=== PATIENT | female | born 1990 | race Caucasian/White ===

== ENCOUNTER → 2022-12-11 | Outpatient (CLI) | payer OTHER, SELFPAY ==
[2022-12-11 16:11] LABS: Absolute Lymphocyte Count 2.68 X10^3/uL (0.83-4.51); Absolute Neutrophil Count 7.5 X10^3/uL (2.0-7.7); Basophil# 0.06 X10^3/uL; Basophil% 0.5 % (0-1); Eosinophil# 0.19 X10^3/uL; Eosinophils% 1.7 % (0-5); Hematocrit 37.2 % (37-47); Hemoglobin 11.1 g/dL (12.0-15.0); Lymphocyte # 2.68 X10^3/ul (0.83-4.51); Lymphocyte % 24.1 % (19-41); Mean Corp Hgb Conc 29.8 g/dL (32-36); Mean Corpuscular Hgb 24.1 pg (27.0-32.0); Mean Corpuscular Volume 80.9 fL (81-99); Mean Platelet Vol. 10.8 fl (6.2-12.0); Monocyte# 0.65 X10^3/uL; Monocyte% 5.9 % (0-10); NRBC Flagged by Analyzer 0 % (0-5); Neutrophil % 67.5 % (47-70); Platelet Count 478 K/mm3 (150-450); RBC Distribution Width CV 14.8 % (11.6-14.6); RBC Distribution Width SD 43.7 fl (35.1-43.9); White Blood Count 11.1 K/mm3 (4.4-11.0)
[2022-12-11 17:07] LABS: ALB/GLOB Ratio 0.9 RATIO (0.9-2.4); AST(SGOT) 11 U/L (15-37); Alanine Aminotransfer ALT/SGPT 22 U/L (13-56); Albumin, Serum 3.7 g/dL (3.2-5.0); Alkaline Phosphatase 92 U/L (45-117); Anion Gap 5 (5-15); BUN 13 mg/dL (7-18); BUN/Creat Ratio 15.4 RATIO (10-20); Calcium,Total 9.2 mg/dL (8.5-10.1); Chloride 108 mmol/L (98-107); Creatinine, Serum 0.84 mg/dL (0.55-1.02); EST Glomerular Filtration Rate 82 mL/min (>60); Est Glom Filt Rate - Afr Amer 100 mL/min (>60); Globulin 4.3 g/dL (2.2-4.2); Glucose 82 mg/dL (74-106); Potassium 3.8 mmol/L (3.5-5.1); Sodium Level 139 mmol/L (136-145)
== END | disposition home or self-care (01) ==
LOC: BIMLAB 13:36
PROVIDERS: Internal Medicine; Visit Provider Internal Medicine
DX: F51.04 Psychophysiologic insomnia (principal)
CPT/HCPCS: 36415; 80053; 85025

== ENCOUNTER → 2023-02-27 | Outpatient (CLI) | payer OTHER, SELFPAY ==
--- NOTE | 2023-02-27 10:44 | RAD_ITS ---
STUDY: X-RAY - CERVICAL SPINE REASON FOR EXAM: Female, 32 years old. Neck pain, radiculopathy TECHNIQUE: 5 view(s) of the cervical spine were obtained including oblique views. COMPARISON: None FINDINGS: Normal anterior atlantoaxial articulation. Normal odontoid process. Normal cervical lordosis. Normal vertebral bodies and endplates. Normal disc space heights. Normal visualized intervertebral neuroforamina. The soft tissue structures are unremarkable. RAD/Cerv Spine 4 or 5 Views IMPRESSION: Normal x-ray examination of the visualized cervical spine. Electronically Signed: Kali Morin MD at 14:56 EST ,
--- OUTSIDE RECORDS SUMMARY | 2023-02-27 11:19 | XMS RPT_ITS | CCD ---
Author Name Unknown Address [address] [place] [address] Organization [facility] Care Team Providers Care Home Energy Inspector Name Role Phone Cordell Booth DO Unavailable Ethandeisi Reji Unavailable Allergies Allergy Classification Reported Allergen(s) Allergy Type Date of Onset Reaction(s) Facility (1 source) Free Text Propensity to adverse reactions (disorder) [facility] Medications Current Medications Medication Drug Class(es) Dates Sig (Normalized) Sig (Original) hydrocortisone acetate 25 mg/ml / pramoxine hydrochloride 10 mg/ml rectal cream (1 source) Corticosteroid Start: 09-04-2022 Hydrocortisone-pra moxine 2.5%-1% rectal cream Completed/Discontinued Medications Medication Drug Class(es) Dates Sig (Normalized) Sig (Original) NEGATED: Highlighted row has not occurred! (1 source) Start: 09-08-2022 End: 09-08-2022 Problems Problem Classification Problem Date Documented Da te Episodic/Chronic Hemorrhoids (2 sources) Unspecified hemorrhoids; Translations: [Unspecified hemorrhoids] Onset: 09-04-2022 Episodic Vital Signs Date Time Vital Sign Value Performing Clinician Faci lity 09-04-2022 11:08-0400 Body temperature 98.06 [degF] Cordell Booth DO [facility] 09-04-2022 11:08-0400 Body weight 83.9 kg Cordell Booth DO [facility] 09-04-2022 11:08-0400 Diastolic blood pressure 86 mm[Hg] Cordell Booth DO [facility] 09-04-2022 11:08-0400 Heart rate 77 /min Cordell Booth DO [facility] 09-04-2022 11:08-0400 Respiratory rate 16 /min Cordell Booth DO [facility] 09-04-2022 11:08-0400 SaO2% (BldA) [Mass fraction] 99 % Cordell Booth DO [facility] 09-04-2022 11:08-0400 Systolic blood pressure 120 mm[Hg] Cordell Booth DO [facility] Encounters Encounter Date Encounter Type Care Provider Facility Start: 09-04-2022 Cordell Valverde O [facility] Instructions Note Date & Type Note Facility [facility] Additional Source Comments Reason for Visit (unrecogniz ed section and content) Rectal pain for the past 3 weeks. Increased pain with bowel movement. No blood. FOR RECORDS PERTAINING TO PATIENTS WHO ARE OR HAVE BEEN ENROLLED IN A CHEMICAL DEPENDENCY/SUBSTANCEABUSE PROGRAM, SOME INFORMATION MAY BE OMITTED. This clinical summary was aggregated from multiple sources. Caution should be exercised in using it in the provision of clinical care. This summary normalizes information from multiple sources, and as a consequence, information in this document may materially change the coding, format and clinical context of patient data. In addition, data may be omitted in some cases. CLINICAL DECISIONS SHOULD BE BASED ON THE PRIMARY CLINICAL RECORDS. [employer] [facility]. provides no warranty or guarantee of the accuracy or completeness of information in this document.
== END | disposition home or self-care (01) ==
PROVIDERS: PCP Internal Medicine; Referring Provider Internal Medicine; Visit Provider Internal Medicine
DX: M54.2 Cervicalgia (principal)
CPT/HCPCS: 72050

== ENCOUNTER → 2023-04-10 | Outpatient (CLI) | payer OTHER, SELFPAY ==
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
== END | disposition home or self-care (01) ==
PROVIDERS: PCP Internal Medicine; Visit Provider Internal Medicine
DX: R35.0 Frequency of micturition (principal)
CPT/HCPCS: 87086

== ENCOUNTER → 2023-06-28 | Outpatient (CLI) | payer OTHER, SELFPAY ==
[2023-06-28 14:03] LABS: Bacteria 0 SEEN /hpf (None Seen); Mucous, Urine 0 SEEN /hpf (<or=2+)
[2023-06-28 16:11] LABS: Color, Urine Yellow (Yellow); Glucose, Dipstick Normal (Normal); Ketone-Dipstick Negative (Negative); Leukocyte Esterase-Dipstick Negative /ul (Negative); Nitrite-Dipstick Negative (Negative); Occult Blood-Urine Negative /ul (Negative); Protein-Dipstick Negative (Negative); Specific Gravity, Urine 1.025 (1.002-1.030); Urine Bilirubin Dipstick Negative (Negative); Urine Clarity Clear (Clear); Urine Urobilinogen Normal (Normal)
[2023-06-28 16:49] LABS: Red Blood Cells-Urine 0-5 SEEN /hpf (0-5); Squamous Epithelial Cells - UA 0-5 SEEN /hpf (5-10); White Blood Cells 0-5 SEEN /hpf (0-5)
[2023-07-03 22:03] LABS: HPV Reflexed? NOT INDICATED
== END | disposition home or self-care (01) ==
LOC: LABSPEC 11:13
PROVIDERS: PCP Internal Medicine; Visit Provider Internal Medicine
DX: Z12.4 Encounter for screening for malignant neoplasm of cervix (principal); R35.0 Frequency of micturition; N89.8 Other specified noninflammatory disorders of vagina
CPT/HCPCS: 81001; 87070; 87086; 87088; 87205; 88175; G0145

== ENCOUNTER 2023-07-18 19:34 | Emergency (ER) | payer OTHER, SELFPAY ==
[2023-07-18 19:35] VITALS: BP 126/82; PULSE 91; RESP 16; TEMP 36.8; O2SAT 95; BMI 32.6
--- NOTE | 2023-07-18 20:47 | EDS_ITS ---
HPI HPI - GI History of Present Illness Chief Complaint: Abd Pain Narrative Narrative: 33-year-old female past medical history of 2 prior C-sections presents with 4 days of left lower quadrant abdominal pain/left flank pain. She states her symptoms began on Sunday, she starts having sharp stabbing pain underneath her left rib cage, radiating downward. And moved to the left lower quadrant. She went to sleep and woke up Sunday morning and it was still present. She saw her primary care provider's office where they did a urinalysis with the thought that it may be ureterolithiasis, but there was no evidence of blood. She does not describe any colicky pain that she can get comfortable but continuous pain mainly in the left lower quadrant. She denies any overt fever, but she felt warm, then was chilled today even though it was 80 degrees out. She denies any gross hematuria, and additionally no problems with bowel movements with her last normal bowel movement being today. Her last menstrual period was approximately a week and a half ago. She presents because of the continued left lower quadrant pain. She may feel partially improved when she lies flat on her back. PFSH PFSH Medical History UTI (urinary tract infection) Left eye pain Herpes zoster Flu vaccine need GERD (gastroesophageal reflux disease) Chronic headaches History of back problems Anemia Home Medications ?Medication ?Instructions ?Recorded ?Last Taken ?Type trazodone 100 mg tablet 100 mg PO QHS #30 tabs 12/05/22 Unknown Rx omeprazole 20 mg capsule,delayed 20 mg PO DAILY #90 caps 04/10/23 Unknown Rx release Allergy/AdvReac Type Severity Reaction Status Date / Time amoxicillin Allergy Severe Other Verified 07/18/23 19:37 nitrofurantoin (From Allergy Severe Itching Verified 07/18/23 19:37 Macrobid) ceftriaxone (From Rocephin) Allergy Intermediate Other Verified 07/18/23 19:37 Family History Mother Anemia Father Diabetes Hypertension High cholesterol Aunt Breast cancer Sister Epilepsy Uncle Cancer Skin CA Surgical History Previous section Social History household members: spouse and children number of children: 2 current occupational status: employed 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 HEENT: No sore throat. No neck pain. No loss of vision. No rhinorrhea. Cardiovascular: No chest pain. No palpitations. No pedal edema. Respiratory: No cough, no shortness of breath. Abdominal: Left lower quadrant abdominal pain. No nausea. No vomiting. No diarrhea. No constipation/obstipation. Genitourinary: No dysuria. No hematuria. Musculoskeletal: No myalgias. No arthralgias. Neurologic: No headaches. No dizziness. No lightheadedness. Skin: No rash. No change in color. Psychiatric: No depression. No anxiety. EXAM Physical Exam Narrative Exam Narrative: Afebrile. Vital signs noted. HEENT: Normocephalic. Atraumatic. PERRL, EOMI. Neck soft and supple. No point tenderness or step off. Cardiovascular: Regular rate and rhythm. No murmurs, rubs, or gallops appreciated. Respiratory: No tachypnea. Lungs clear to auscultation bilaterally. Gastrointestinal: Abdomen soft, nontender, with normoactive bowel sounds. No rebound or guarding. No CVA tenderness to percussion, left. Mild tenderness to palpation left lower quadrant of abdomen. Neurological: Awake. Alert. Nonfocal, nonlateralizing. Skin: No rash. Normal color. No pallor. Musculoskeletal: No pedal edema. Full range of motion extremities. Const Vital Signs: 07/18/23 19:35 07/18/23 21:34 Temperature 98.3 F Temperature Source Temporal Pulse Rate 91 74 Respiratory Rate 16 18 Blood Pressure 126/82 H 123/76 H Blood Pressure Mean 96 91 Pulse Ox 95 Oxygen Delivery Method Room Air MDM MDM MDM Narrative Medical decision making narrative: In the differential diagnosis does remain ureterolithiasis versus diverticulitis versus colitis. She not really showing any signs of diverticulitis with a normal bowel movement today. She is already had workup that did not show blood in her urine. However as 30% of kidney stones do not have blood on the urinalysis, comprehensive workup will be pursued. I do feel that she merits emergent CT imaging given the tenderness in the left lower quadrant of her abdomen. Although she will be given IV contrast, I do not think it would obscure stone, and hydronephrosis would still be seen. She was given morphine and ondansetron along with an IV fluid bolus. I reviewed her laboratory work and she has slightly elevated leukocytosis of 13.0, but has been elevated in the past. I think is nonspecific, hemoglobin stable at 11.8, hematocrit 38.2, platelet count normal at 446. Electrolyte panel is grossly unremarkable with a sodium of 138 and a potassium of 3.8, BUN of 11 and creatinine 0.86. AST and ALT are normal. Urinalysis is negative for infection with 0 WBCs and 0 RBCs, no hematuria. I doubt ureterolithiasis or pyelonephritis then. Serum test is negative. Repeat examination after morphine and ondansetron shows her to ambulate to the bathroom and states that she feels improved. I reviewed the radiology report of the CT of the abdomen and pelvis and while there is diverticulosis there is no evidence of diverticulitis or bowel obstruction. No evidence of obstructive uropathy. At this point in time, I am unsure as to the cause of her left flank pain, but I feel that she can be discharged to take [id number] medications and follow- up with her primary care provider. Return instructions to the emergency department were reviewed. Patient agreeable to the plan. Disposition is discharged home in stable condition. History & Record Review Discussion w/independent historian: Patient Additional record(s) reviewed:: Prior labs Lab Data Attestation: I reviewed the patient's lab results. Labs: Laboratory Results - last 24 hr 07/18/23 07/18/23 19:50 20:33 WBC 13.0 H RBC 4.82 Hgb 11.8 L Hct 38.2 MCV 79.3 L MCH 24.5 L MCHC 30.9 L RDW Std Deviation 42.9 RDW Coeff of Giuseppe 14.9 H Plt Count 446 MPV 11.0 Immature Gran % (Auto) 0.300 Neut % (Auto) 67.2 Lymph % (Auto) 24.1 Rabun % (Auto) 5.7 Eos % (Auto) 1.9 Baso % (Auto) 0.8 Absolute Neuts (auto) 8.8 H Absolute Lymphs (auto) 3.13 Nucleated RBC % 0 Sodium 138 Potassium 3.8 Chloride 107 Carbon Dioxide 24.0 Anion Gap 7 BUN 11 Creatinine 0.86 Estim Creat Clear Calc 105.14 Est GFR (MDRD) Af Amer 96 Est GFR (MDRD) Non-Af 80 BUN/Creatinine Ratio 12.7 Glucose 98 Calcium 9.7 Total Bilirubin 0.20 AST 17 ALT 32 Alkaline Phosphatase 103 Total Protein 7.9 Albumin 3.9 Globulin 4.0 Albumin/Globulin Ratio 1.0 Serum , Qual NEGATIVE Urine Color Straw Urine Clarity Clear Urine pH 7.0 Ur Specific [place] 1.005 Urine Protein Negative Urine Glucose (UA) Normal Urine Ketones Negative Urine Occult Blood Negative Urine Nitrite Negative Urine Bilirubin Negative Urine Urobilinogen Normal Ur Leukocyte Esterase Negative Urine RBC 0 SEEN Urine WBC 0 SEEN Ur Squamous Epith Cells 0-5 SEEN Urine Bacteria 0 SEEN Urine Mucus 0 SEEN Radiography Diagnostic Testing: Clinical Impression(s) from Imaging Studies Abdomen/Pelvis CT 07/18/23 21:35 IMPRESSION: 1. No masses bowel obstruction abscess free fluid or free air. 2. Scattered diverticula without evidence diverticulitis. 3. The appendix is not identified. 4. No evidence renal calcification or obstructive uropathy. 5. No evidence cholelithiasis. 6. Trace nonspecific fluid is present within the pelvis/cul-de-sac. No evidence of pelvic masses or abnormal Electronically Signed: Roddy [place] MD at 22:27 EDT , Discharge Plan Triage Chief Complaint: Abd Pain Other Complaint: Flank Pain ED Provider: Ariel Bui Dx/Rx/DC Orders Clinical Impression: Left flank pain Instructions: ED Flank Pain, Uncertain Cause Prescriptions: No Action trazodone 100 mg tablet 100 mg PO QHS Qty: 30 1RF omeprazole 20 mg capsule,delayed release(DR/EC) 20 mg PO DAILY Qty: 90 0RF Primary Care Provider: Roma Rao Referrals: Roma Rao MD [Primary Care Provider] - 3-5 Days if not improving Activity Restrictions/Additional Instructions: Negative CT scan today. Take [id number] medications such as Tylenol or ibuprofen as needed for pain. Follow-up with your primary care provider. Return with increased pain, fever, new or worsening symptoms. Print Language: Irish Disposition Disposition: Home, Self Care
[2023-07-18 20:56] LABS: Bacteria 0 SEEN /hpf (None Seen); Mucous, Urine 0 SEEN /hpf (<or=2+); Red Blood Cells-Urine 0 SEEN /hpf (0-5); White Blood Cells 0 SEEN /hpf (0-5)
[2023-07-18] MEDS: Ondansetron 4 MG/2 ML Vial IV (20:58)
[2023-07-18] MEDS: 0.9% Normal Saline (1000mL) 1,000 ML 999 ML IV (20:58)
[2023-07-18 20:59] LABS: Absolute Lymphocyte Count 3.13 X10^3/uL (0.83-4.51); Absolute Neutrophil Count 8.8 X10^3/uL (2.0-7.7); Basophil% 0.8 % (0-1); Eosinophil# 0.25 X10^3/uL; Eosinophils% 1.9 % (0-5); Hematocrit 38.2 % (37-47); Hemoglobin 11.8 g/dL (12.0-15.0); Lymphocyte # 3.13 X10^3/ul (0.83-4.51); Lymphocyte % 24.1 % (19-41); Mean Corp Hgb Conc 30.9 g/dL (32-36); Mean Corpuscular Hgb 24.5 pg (27.0-32.0); Mean Corpuscular Volume 79.3 fL (81-99); Monocyte# 0.74 X10^3/uL; Monocyte% 5.7 % (0-10); NRBC Flagged by Analyzer 0 % (0-5); Neutrophil # 8.75 X10^3/uL (2.7-7.7); Neutrophil % 67.2 % (47-70); Platelet Count 446 K/mm3 (150-450); RBC Distribution Width CV 14.9 % (11.6-14.6); RBC Distribution Width SD 42.9 fl (35.1-43.9); Red Blood Count 4.82 M/mm3 (4.2-5.4)
[2023-07-18 21:02] LABS: Color, Urine Straw (Yellow); Glucose, Dipstick Normal (Normal); Ketone-Dipstick Negative (Negative); Leukocyte Esterase-Dipstick Negative /ul (Negative); Nitrite-Dipstick Negative (Negative); Occult Blood-Urine Negative /ul (Negative); Protein-Dipstick Negative (Negative); Specific Gravity, Urine 1.005 (1.002-1.030); Urine Bilirubin Dipstick Negative (Negative); Urine Clarity Clear (Clear); Urine Urobilinogen Normal (Normal)
[2023-07-18 21:20] LABS: Internal QC Validated? YES +Cl - CLEAR BKGD; Pregnancy, Serum, hCG Quali. NEGATIVE Negative
[2023-07-18 21:27] LABS: AST(SGOT) 17 U/L (15-37); Alanine Aminotransfer ALT/SGPT 32 U/L (13-56); Albumin, Serum 3.9 g/dL (3.2-5.0); Alkaline Phosphatase 103 U/L (45-117); Anion Gap 7 (5-15); BUN 11 mg/dL (7-18); BUN/Creat Ratio 12.7 RATIO (10-20); Calcium,Total 9.7 mg/dL (8.5-10.1); Chloride 107 mmol/L (98-107); Creatinine, Serum 0.86 mg/dL (0.55-1.02); EST Glomerular Filtration Rate 80 mL/min (>60); Est Glom Filt Rate - Afr Amer 96 mL/min (>60); Estimated Creatinine Clearance 105.14 ml/min; Glucose 98 mg/dL (74-106); Potassium 3.8 mmol/L (3.5-5.1); Protein, Total 7.9 g/dL (6.4-8.2); Sodium Level 138 mmol/L (136-145)
[2023-07-18 21:30] LABS: Squamous Epithelial Cells - UA 0-5 SEEN /hpf (5-10)
[2023-07-18 21:34] VITALS: BP 123/76; PULSE 74; RESP 18
--- NOTE | 2023-07-18 21:35 | CT_ITS ---
INDICATION: LLQ pain EXAMINATION: CT ABDOMEN AND PELVIS with CONTRAST - CT Abdomen And Pelvis W/ Contrast Injection TECHNIQUE: Multiple axial images were obtained of the abdomen and pelvis following administration of IV contrast. Planar reconstructions obtained. A radiation dose optimization technique was used for this scan. RADIATION DOSAGE (If Supplied By Facility): CTDIvol = ( 14.50 ) mGy, DLP = ( 1015.85 ) mGycm IV Contrast dosage and agent: 100 mL Isovue-370 Oral contrast: None. COMPARISON: No pertinent previous studies for comparison.. FINDINGS: LOWER THORAX: Lungs are clear. Cardiac contour is normal, no pericardial effusion. No coronary vascular calcifications noted. HEPATOBILIARY: Liver: The liver is homogeneous and shows no evidence of focal lesion. Gallbladder: Gallbladder is contracted, no calcifications noted. No ductal dilatation Pancreas: Pancreas is normal size configuration and density. No mass is noted. Spleen: The spleen is homogeneous and normal in size. . BOWEL: Stomach: The stomach is normal in size configuration, no evidence of focal masses, abnormal calcifications. No hiatal hernia noted. Bowel: Small and large have normal configuration, no masses or bowel obstruction noted. No evidence of diverticulitis. Minimal scattered diverticula are present. Appendix: The appendix is not positively identified.: GENITOURINARY: Adrenals: Both adrenal glands are normal in size. Kidneys: Kidneys appear symmetric in size. No calcifications are seen in the collecting system. There is no hydronephrosis or surrounding fluid. Bladder: Normal Pelvic organs: Uterus has normal configuration. No evidence of masses or adenopathy involving the pelvis or pelvic sidewalls. Trace nonspecific fluid is present cul-de-sac. RETROPERITONEUM: There is normal appearance of the abdominal aorta and inferior vena cava. LYMPH NODES: No evidence of retroperitoneal or para-aortic masses fluid collections or adenopathy. PERITONEAL CAVITY: Trace fluid in the cul-de-sac, no other evidence of ascites. ANTERIOR ABDOMINAL WALL: Normal, no hernia identified. BONES AND SOFT TISSUES: The skeleton shows no evidence for fractures or destructive lesions. OTHER: None CT/Abdomen/Pelvis W IV Cont ONLY IMPRESSION: 1. No masses bowel obstruction abscess free fluid or free air. 2. Scattered diverticula without evidence diverticulitis. 3. The appendix is not identified. 4. No evidence renal calcification or obstructive uropathy. 5. No evidence cholelithiasis. 6. Trace nonspecific fluid is present within the pelvis/cul-de-sac. No evidence of pelvic masses or abnormal Electronically Signed: Roddy Colorado MD at 22:27 EDT ,
[2023-07-18 22:57] VITALS: BP 114/76; PULSE 96; RESP 18; TEMP 36.4; O2SAT 98
== END 2023-07-18 22:58 | disposition home or self-care (01) ==
PROVIDERS: Emergency Provider Emergency Medicine; PCP Internal Medicine; Visit Provider Emergency Medicine
DX: R10.814 Left lower quadrant abdominal tenderness (principal); K21.9 Gastro-esophageal reflux disease without esophagitis; Z79.899 Other long term (current) drug therapy
CPT/HCPCS: 74177; 80053; 81001; 84703; 85025; 96361; 96374; 96375; 99283; J7030; Q9967; A4216; J2405

== ENCOUNTER 2024-03-14 08:01 | Emergency (ER) | payer OTHER, SELFPAY ==
[2024-03-14 08:01] VITALS: BP 115/78; PULSE 88; RESP 16; TEMP 36.9; O2SAT 99; BMI 31.3
--- NOTE | 2024-03-14 08:16 | RAD_ITS ---
PROCEDURE: ANKLE MIN 3 VIEWS; FOOT MIN 3 VIEWS REASON FOR EXAM: Injury 03/13/2024. Pain. TECHNIQUE: Three-view right ankle series and three-view right foot series (combined dictation). COMPARISON: None RAD/Foot min 3 Views IMPRESSION: On lateral images, normal contour of the Achilles tendon is seen. No ankle geri nt effusion is evident. No arthritic process or joint narrowing is seen. No fracture or dislocation is evident. If clinical concern persists, short-term follow-up imaging may be obtained to r ule out a currently occult fracture. Reading Location: [id number]
--- NOTE | 2024-03-14 08:16 | RAD_ITS ---
PROCEDURE: ANKLE MIN 3 VIEWS; FOOT MIN 3 VIEWS REASON FOR EXAM: Injury 03/13/2024. Pain. TECHNIQUE: Three-view right ankle series and three-view right foot series (combined dictation). COMPARISON: None RAD/Ankle min 3 Views IMPRESSION: On lateral images, normal contour of the Achilles tendon is seen. No ankle geri nt effusion is evident. No arthritic process or joint narrowing is seen. No fracture or dislocation is evident. If clinical concern persists, short-term follow-up imaging may be obtained to r ule out a currently occult fracture. Reading Location: [id number]
--- NOTE | 2024-03-14 08:40 | RAD_ITS ---
EXAM: TIBIA FIBULA 2 VIEWS CLINICAL HISTORY: Pain. COMPARISON: None. TECHNIQUE: Four views of the tibia and fibula were obtained. FINDINGS: No abnormality is seen. RAD/Tibia & Fibula 2 Views IMPRESSION: No abnormality is seen. Reading Location: [place] [id number]
--- NOTE | 2024-03-14 09:13 | EDS_ITS ---
HPI History of Present Illness Chief Complaint: Lower Extremity Injury Informant: patient Narrative Narrative: Patient is a 33 year old female year old presenting with right lower leg pain. Patient states she was playing a VR game last night with her family when she somehow tripped and fell. She twisted her leg and then landed on her leg. It took her a while to get up because of pain. She took Advil around 630 this morning. Has pain in her right ankle, foot and mullen. Denies any knee pain or hip pain. Is not really able to walk. Came in for further evaluation. Denies any other injuries. Not any blood thinners. Denies any associate numbness or tingling. [facility] Medical History Paronychia of right index finger Rosacea UTI (urinary tract infection) Left eye pain Herpes zoster Flu vaccine need GERD (gastroesophageal reflux disease) Chronic headaches History of back problems Anemia Home Medications ?Medication ?Instructions ?Recorded ?Last Taken ?Type trazodone 100 mg tablet 100 mg PO QHS #30 tabs 12/05 Unknown Rx omeprazole 20 mg capsule,delayed 20 mg PO DAILY #90 ca ps 04/10/23 Unknown Rx release metronidazole 0.75 % topical cream 1 applic topical BI D #45 grams 02/09/24 Unknown Rx doxycycline monohydrate 100 mg 100 mg PO BID #20 caps 02/12/24 Unknown Rx capsule Allergy/AdvReac Type Severity Reaction Status Date / Time amoxicillin Allergy Severe Other Verified 03/14/24 08:01 nitrofurantoin (From Allergy Severe Itching Verified 03/14/24 08:01 Macrobid) ceftriaxone (From Rocephin) Allergy Intermediate Other Verified 03/14/24 08:01 Family History Mother Anemia Father Diabetes Hypertension High cholesterol Aunt Breast cancer Sister Epilepsy Uncle Cancer Skin CA Surgical History Previous section Social History household members: spouse and children number of children: 2 current occupational status: employed 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, 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 Smoking Status: Never smoker Electronic Cigarette Use: not used alcohol intake: never substance use type: does not use what type of physical activity do you participate in: none seatbelt use: always do you feel safe at home: Yes ROS ROS ED Constitutional Constitutional ED: Denies chills or fever(s) Gastrointestinal Gastrointestinal: Denies nausea or vomiting Musculoskeletal Musculoskeletal: Reports other Details: Right lower leg, ankle and foot pain Integumentary Denies rash Neurologic Neurologic: Denies paresthesias or weakness Hematologic/Lymphatic Hematologic/Lymphatic: Denies easy bleeding or easy bruising EXAM Physical Exam Const Vital Signs: 03/14/24 08:01 Temperature 98.5 F Temperature Source Oral Pulse Rate 88 Respiratory Rate 16 Blood Pressure 115/78 Blood Pressure Mean 90 Pulse Ox 99 Oxygen Delivery Method Room Air Positive well nourished and well developed General Appearance ED: well developed and NAD HEENT Reports moist mucous membranes Neck full ROM Resp normal respiratory effort Cardio regular rate and regular rhythm Cardio Narrative: 2+ DP pulses Extremity Extremity Narrative: Right lower extremity?normal extensor mechanism of the knee. No pain with range of motion of the hip. No deformity of the right lower extremity. Patient does have tenderness to palpation along the mid and distal fibula, right lateral ankle and mildly in the lateral aspect of the foot. No obvious deformity. Pain seems to be worse at the right lateral malleolus and there is some associated soft tissue swelling. No associate erythema. No crepitus appreciated. Normal range of motion of the joints. No pinpoint tenderness over the fibular head. Psych mental status grossly normal Skin no wounds Rashes: no rashes MDM MDM MDM Narrative Medical decision making narrative: Patient valuated for right lower extremity injury. She twisted and fell on her right lower leg. Differential include ankle sprain, ankle fracture, ankle dislocation, metatarsal fracture and fibular fracture. Patient took Motrin prior to arrival. She is neuro vascularly intact. Compartments are soft. X-ray of the ankle, foot and tib-fib reviewed by myself as well as radiology does not show any acute fracture or dislocation. Patient took NSAIDs prior to arrival. I will be treated as an ankle sprain and given an air stirrup and crutches. Given a work note. Counseled the risk of occult fracture and that she might require repeat x-ray in 7 to 10 days if her pain persist. Counseled that even with a sprain she can have discomfort in her ankle for up to a month. Encouraged follow-up with her primary care doctor. Encouraged to take NSAIDs [id number] as needed for pain and discussed RICE therapy. Discharged home in stable condition. Given return precautions. Radiography Diagnostic Testing: Clinical Impression(s) from Imaging Studies Ankle X-Ray 03/14/24 08:16 IMPRESSION: On lateral images, normal contour of the Achilles tendon is seen. No ankle joint effusion is evident. No arthritic process or joint narrowing is seen. No fracture or dislocation is evident. If clinical concern persists, short-term follow-up imaging may be obtained to rule out a currently occult fracture. Reading Location: [address] Foot X-Ray 03/14/24 08:16 IMPRESSION: On lateral images, normal contour of the Achilles tendon is seen. No ankle joint effusion is evident. No arthritic process or joint narrowing is seen. No fracture or dislocation is evident. If clinical concern persists, short-term follow-up imaging may be obtained to rule out a currently occult fracture. Reading Location: [address] Discharge Plan Triage Chief Complaint: Lower Extremity Injury ED Provider: Reyna Dumont Dx/Rx/DC Orders Clinical Impression: Right ankle sprain Instructions: ED Sprain Ankle W X Ray Prescriptions: No Action trazodone 100 mg tablet 100 mg PO QHS Qty: 30 1RF omeprazole 20 mg capsule,delayed release(DR/EC) 20 mg PO DAILY Qty: 90 0RF metronidazole 0.75 % cream 1 applic topical BID Qty: 45 0RF doxycycline monohydrate 100 mg capsule 100 mg PO BID Qty: 20 0RF Stand Alone Forms: ED Work / School Excuse Primary Care Provider: Roma Rao Referrals: Roma Rao MD [Primary Care Provider] - Activity Restrictions/Additional Instructions: Your x-rays did not show any acute fractures/broken bones. Please follow-up with your primary care doctor especially was not improving over the next 7 to 10 days. You might require repeat x-ray. Put weight on the foot as tolerated and continue to take up to 600 mg [id number] ibuprofen (3 tablets) every 6 hours for pain. Ice the area. Elevate when you are sitting. Print Language: [place] Citizen Disposition Disposition: Home, Self Care
[2024-03-14 10:04] VITALS: BP 112/76; PULSE 81; RESP 14; TEMP 36.6; O2SAT 98
== END 2024-03-14 10:04 | disposition home or self-care (01) ==
PROVIDERS: Emergency Provider Emergency Medicine; PCP Internal Medicine; Visit Provider Emergency Medicine
DX: S93.401A Sprain of unspecified ligament of right ankle, initial encounter (principal); W18.09XA Striking against other object with subsequent fall, initial encounter; Y93.89 Activity, other specified; K21.9 Gastro-esophageal reflux disease without esophagitis; Z79.899 Other long term (current) drug therapy
CPT/HCPCS: 73590; 73610; 73630; 99284

== ENCOUNTER 2024-03-21 19:02 | Emergency (ER) | payer OTHER, SELFPAY ==
[2024-03-21 19:02] VITALS: BP 122/74; PULSE 101; RESP 16; TEMP 36.6; O2SAT 100; BMI 32.9
--- NOTE | 2024-03-21 20:09 | RAD_ITS ---
PROCEDURE: ANKLE MIN 3 VIEWS REASON FOR EXAM: Fall. TECHNIQUE: 3 views of the right ankle COMPARISON: None FINDINGS: No visible fracture. No suspicious bone lesion. Normal alignment. Mortise appears intact. No effusion. Soft tissues are unremarkable. RAD/Ankle min 3 Views IMPRESSION: NEGATIVE ANKLE SERIES Reading Location: [id number]
--- NOTE | 2024-03-21 20:09 | EDS_ITS ---
HPI History of Present Illness Chief Complaint: Lower Extremity Injury Narrative Narrative: Patient is a 33-year-old female with a past medical history of GERD, anemia who presents to the emergency department from urgent care with a chief complaint of right foot pain. Patient states that she had an injury to her right lower extremity approximately a week ago was evaluated here had x-rays and was ultimately sent home. She states that today she developed numbness and tingling going from her foot up her leg to the middle of her mullen. Patient denies any new injuries. Patient states that she went to urgent care and they concerned that they did not find a pulse as her foot was cold to the touch therefore they sent her here for the valuation management. Patient denies any history of recent travel denies any history of blood clots [facility] Medical History Paronychia of right index finger Rosacea UTI (urinary tract infection) Left eye pain Herpes zoster Flu vaccine need GERD (gastroesophageal reflux disease) Chronic headaches History of back problems Anemia Home Medications ?Medication ?Instructions ?Recorded ?Last Taken ?Type trazodone 100 mg tablet 100 mg PO QHS #30 tabs 12/05 Unknown Rx omeprazole 20 mg capsule,delayed 20 mg PO DAILY #90 ca ps 04/10/23 Unknown Rx release metronidazole 0.75 % topical cream 1 applic topical BI D #45 grams 02/09/24 Unknown Rx doxycycline monohydrate 100 mg 100 mg PO BID #20 caps 02/12/24 Unknown Rx capsule Allergy/AdvReac Type Severity Reaction Status Date / Time amoxicillin Allergy Severe Other Verified 03/14/24 08:01 nitrofurantoin (From Allergy Severe Itching Verified 03/14/24 08:01 Macrobid) ceftriaxone (From Rocephin) Allergy Intermediate Other Verified 03/14/24 08:01 Family History Mother Anemia Father Diabetes Hypertension High cholesterol Aunt Breast cancer Sister Epilepsy Uncle Cancer Skin CA Surgical History Previous section Social History household members: spouse and children number of children: 2 current occupational status: employed 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, 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 Smoking Status: Never smoker Electronic Cigarette Use: not used alcohol intake: never substance use type: does not use what type of physical activity do you participate in: none seatbelt use: always do you feel safe at home: Yes ROS ROS ED ROS Narrative Constitutional: Denies any fevers or chills Abdomen: Denies abdominal pain nausea vomit diarrhea Neurological: Complained of some numbness tingling going up her foot as noted above denies any weakness Musculoskeletal: Complains of foot and ankle pain as well as concern for no pulse in the right was noted above Skin: Denies any rashes or lesions EXAM Physical Exam Narrative Exam Narrative: General: Patient lying in bed rest comfortably did not appear to be in acute distress Head: Atraumatic, normocephalic Eyes: PERRL bilaterally, EOMI bilaterally, no conjunctival injection noted Neck: Soft, supple, trach midline Cardiovascular: Patient tachycardic with a regular rhythm no murmurs gallops rubs noted Respiratory: Clear to auscultation bilaterally Musculoskeletal: Compartments soft and compressible bilaterally, extremities are equal in temperature bilaterally, patient has tenderness palpation over the medial and lateral malleolus and the right lower extremity Extremities: DP pulses and PT pulses dopplerable in both lower extremities cap refill less than 2 seconds, +5/5 strength noted in the bilateral upper and lower extremities Neurological: Patient following commands knew that she was at [facility] year is 2024. Sensation grossly intact in the bilateral lower extremities Skin: Bilateral lower extremities cool to the touch which is symmetric as noted above, no rashes or lesions noted Const Vital Signs: 03/21/24 19:02 Temperature 98 F Temperature Source Oral Pulse Rate 101 H Respiratory Rate 16 Blood Pressure 122/74 H Blood Pressure Mean 90 Pulse Ox 100 Oxygen Delivery Method Room Air MDM MDM MDM Narrative Medical decision making narrative: Patient is a 33-year-old female who presented to the emergency department with concern of ankle pain that is not improving over the past week as well as urgent care concern for a pulseless foot. On the differential diagnose includes but limited to ankle sprain, medial malleolus fracture, lateral malleolus fracture, metatarsal fracture. Once workup is obtained reviewed she will be reevaluated. There is no concern for pulseless foot here as her cap refill is less than 2 seconds, pulses were dopplerable DP and PT bilaterally. Patient's x-ray of her right ankle did not show any acute fracture dislocations as reviewed by myself and by radiology. Patient's foot x-ray reviewed by myself and radiology showed no acute findings. On reevaluation the patient at 21:00 the patient has good cap refill less than 2 seconds bilaterally, once again the pulses were dopplerable bilaterally DP and PT compartments remain soft and compressible and she remains neurovascularly intact. This is unchanged from original exam. Discussed results with the patient and she would like to go home at this point time. She is encouraged to return with worsening symptoms and concerns she is to follow with her primary care physician in the outpatient setting otherwise all question concerns answered discharged home in stable condition. Radiography Diagnostic Testing: Clinical Impression(s) from Imaging Studies Ankle X-Ray 03/21/24 20:09 IMPRESSION: NEGATIVE ANKLE SERIES Reading Location: [facility] Foot X-Ray 03/21/24 20:09 IMPRESSION: NEGATIVE BILATERAL FEET Reading Location: [facility] Discharge Plan Triage Chief Complaint: Lower Extremity Injury ED Provider: Isauro Ramirez Dx/Rx/DC Orders Clinical Impression: Acute right ankle pain Prescriptions: No Action trazodone 100 mg tablet 100 mg PO QHS Qty: 30 1RF omeprazole 20 mg capsule,delayed release(DR/EC) 20 mg PO DAILY Qty: 90 0RF metronidazole 0.75 % cream 1 applic topical BID Qty: 45 0RF doxycycline monohydrate 100 mg capsule 100 mg PO BID Qty: 20 0RF Stand Alone Forms: ED Work / School Excuse Primary Care Provider: Roma Rao Referrals: Roma Rao MD [Primary Care Provider] - Activity Restrictions/Additional Instructions: Follow-up with your doctor in outpatient setting. Return with worsening symptoms or other concerns. Ice, elevate wear the removable ankle brace as we discussed here. Rotate Tylenol and ibuprofen [id number] when you do this you can take something every 3 hours Print Language: [place] Disposition Disposition: Home, Self Care
--- NOTE | 2024-03-21 20:09 | RAD_ITS ---
PROCEDURE: FOOT MIN 3 VIEWS REASON FOR EXAM: Fall. TECHNIQUE: 3 view(s) of the right foot COMPARISON: None. FINDINGS: RIGHT FOOT: No visible fracture. No suspicious bone lesion. Normal alignment. Soft tissues are unremarkable. RAD/Foot min 3 Views IMPRESSION: NEGATIVE BILATERAL FEET Reading Location: [id number]
[2024-03-21 21:02] VITALS: BP 112/65; PULSE 60; RESP 14; O2SAT 99
== END 2024-03-21 21:22 | disposition home or self-care (01) ==
PROVIDERS: Emergency Provider Emergency Medicine; PCP Internal Medicine; Visit Provider Emergency Medicine
DX: M25.571 Pain in right ankle and joints of right foot (principal); K21.9 Gastro-esophageal reflux disease without esophagitis; Z79.85 Long-term (current) use of injectable non-insulin antidiabetic drugs; Z79.899 Other long term (current) drug therapy
CPT/HCPCS: 73610; 73630; 99283

== ENCOUNTER → 2024-04-01 | Outpatient (CLI) | payer OTHER, SELFPAY ==
[2024-04-01 16:09] LABS: Absolute Lymphocyte Count 2.54 X10^3/uL (0.83-4.51); Absolute Neutrophil Count 9.4 X10^3/uL (2.0-7.7); Basophil# 0.08 X10^3/uL; Basophil% 0.6 % (0-1); Eosinophil# 0.07 X10^3/uL; Eosinophils% 0.5 % (0-5); Hematocrit 37.5 % (37-47); Hemoglobin 11.5 g/dL (12.0-15.0); Lymphocyte # 2.54 X10^3/ul (0.83-4.51); Lymphocyte % 19.8 % (19-41); Mean Corp Hgb Conc 30.7 g/dL (32-36); Mean Corpuscular Hgb 24.8 pg (27.0-32.0); Mean Corpuscular Volume 80.8 fL (81-99); Monocyte# 0.68 X10^3/uL; Monocyte% 5.3 % (0-10); NRBC Flagged by Analyzer 0 % (0-5); Neutrophil # 9.43 X10^3/uL (2.7-7.7); Neutrophil % 73.3 % (47-70); Platelet Count 482 K/mm3 (150-450); RBC Distribution Width CV 14.6 % (11.6-14.6); RBC Distribution Width SD 42.8 fl (35.1-43.9); Red Blood Count 4.64 M/mm3 (4.2-5.4); White Blood Count 12.9 K/mm3 (4.4-11.0)
[2024-04-01 16:29] LABS: Hemoglobin A1c 5.6 % (3.8-5.6)
[2024-04-01 16:44] LABS: AST(SGOT) 20 U/L (15-37); Alanine Aminotransfer ALT/SGPT 27 U/L (13-56); Alkaline Phosphatase 97 U/L (45-117); Anion Gap 8 (5-15); BUN 13 mg/dL (7-18); BUN/Creat Ratio 14.6 RATIO (10-20); Calcium,Total 9.5 mg/dL (8.5-10.1); Chloride 106 mmol/L (98-107); Creatinine, Serum 0.89 mg/dL (0.55-1.02); EST Glomerular Filtration Rate 77 mL/min (>60); Est Glom Filt Rate - Afr Amer 93 mL/min (>60); Globulin 4.1 g/dL (2.2-4.2); Glucose 97 mg/dL (74-106); Potassium 3.8 mmol/L (3.5-5.1); Protein, Total 8.1 g/dL (6.4-8.2); Sodium Level 140 mmol/L (136-145)
== END | disposition home or self-care (01) ==
LOC: BIMLAB 13:44
PROVIDERS: PCP Internal Medicine; Referring Provider Internal Medicine; Visit Provider Internal Medicine
DX: E66.811 Obesity, class 1 (principal)
CPT/HCPCS: 36415; 80053; 83036; 84443; 85025

== ENCOUNTER → 2024-04-08 | Outpatient (CLI) | payer OTHER, SELFPAY ==
[2024-04-08 13:24] LABS: Erythrocyte Sedimentation Rate 27 mm/hr (0-30)
[2024-04-09 01:56] LABS: CRP 4.02 mg/L (0.0-3.0)
[2024-04-09 08:09] LABS: ANTINUCLEAR ANTIBODIES DIRECT Negative (Negative); Anti-Centromere B Ab <0.2 AI (0.0-0.9); Anti-Chromatin <0.2 AI (0.0-0.9); Anti-Jo <0.2 AI (0.0-0.9); Anti-Scleroderma-70 AB <0.2 AI (0.0-0.9); Anti-dsDNA Ab <1 IU/mL (0-9); RNP Ab <0.2 AI (0.0-0.9); SJOGREN'S Anti-SS-A test < 0.2 AI (0.0-0.9); SJOGREN'S Anti-SS-B test < 0.2 AI (0.0-0.9); Smith Ab <0.2 AI (0.0-0.9)
== END | disposition home or self-care (01) ==
LOC: BIMLAB 09:21
PROVIDERS: PCP Internal Medicine; Referring Provider Internal Medicine; Visit Provider Internal Medicine
DX: R51.9 Headache, unspecified (principal); G89.29 Other chronic pain
CPT/HCPCS: 36415; 85652; 86038; 86140; 86225; 86235

== ENCOUNTER → 2024-06-04 09:19 | Outpatient (RCR) | payer OTHER, SELFPAY ==
[2024-05-15 17:40] LABS: Absolute Lymphocyte Count 2.62 X10^3/uL (0.83-4.51); Absolute Neutrophil Count 9.3 X10^3/uL (2.0-7.7); Basophil# 0.07 X10^3/uL; Basophil% 0.5 % (0-1); Eosinophils% 0.8 % (0-5); Hematocrit 38.3 % (37-47); Hemoglobin 12.2 g/dL (12.0-15.0); Lymphocyte # 2.62 X10^3/ul (0.83-4.51); Lymphocyte % 20.5 % (19-41); Mean Corp Hgb Conc 31.9 g/dL (32-36); Mean Corpuscular Hgb 25.1 pg (27.0-32.0); Mean Corpuscular Volume 78.8 fL (81-99); Mean Platelet Vol. 11.2 fl (6.2-12.0); Monocyte# 0.58 X10^3/uL; Monocyte% 4.5 % (0-10); NRBC Flagged by Analyzer 0 % (0-5); Neutrophil # 9.33 X10^3/uL (2.7-7.7); Neutrophil % 73.3 % (47-70); Platelet Count 435 K/mm3 (150-450); RBC Distribution Width CV 14.8 % (11.6-14.6); RBC Distribution Width SD 42.4 fl (35.1-43.9); RET-HE 29.3 pg (30-35); Red Blood Count 4.86 M/mm3 (4.2-5.4); Reticulocyte Count 0.93 % (0.5-1.5); White Blood Count 12.8 K/mm3 (4.4-11.0)
[2024-05-15 18:32] LABS: Ferritin 18 ng/mL (22-378); LDH 184 U/L (84-246)
[2024-05-15 18:41] LABS: EST Glomerular Filtration Rate 96 (>60); Iron Binding Capacity,Total 359 ug/dL (250-450); Vitamin B12 870 pg/mL (180-914)
[2024-05-15 18:46] LABS: Erythrocyte Sedimentation Rate 31 mm/hr (0-30)
[2024-05-15 19:32] LABS: Iron 20 ug/dL (50-170); Iron Binding Capacity,Unsat 339 ug/dL (228-428); PERCENT IRON SATURATION 5.6 % (13-59)
[2024-05-15 19:37] LABS: ALB/GLOB Ratio 1.3 RATIO (0.9-2.4); AST(SGOT) 21 U/L (<=31); Alanine Aminotransfer ALT/SGPT 25 U/L (<=34); Albumin, Serum 4.5 g/dL (3.5-5.0); Alkaline Phosphatase 99 U/L (35-104); Anion Gap 15 (5-15); BUN 16 mg/dL (4-19); BUN/Creat Ratio 19.1 RATIO (10-20); CRP 5.22 mg/L (0.0-3.0); Calcium,Total 9.7 mg/dL (7.6-11.0); Carbon Dioxide 20.7 mmol/L (21.0-32.0); Chloride 105 mmol/L (98-108); Creatinine, Serum 0.83 mg/dL (0.70-1.20); Globulin 3.3 g/dL (2.2-4.2); Glucose 103 mg/dL (70-99); Magnesium 2.2 mg/dL (1.5-2.2); Potassium 3.7 mmol/L (3.3-5.1); Protein, Total 7.8 g/dL (5.9-8.4); Sodium Level 140 mmol/L (133-145)
== END ==
LOC: LAB 05-15 15:57 → ONC 09:19
PROVIDERS: PCP Internal Medicine; Referring Provider Internal Medicine Medical Oncology; Visit Provider Internal Medicine Medical Oncology
DX: D72.829 Elevated white blood cell count, unspecified (principal); D64.9 Anemia, unspecified
CPT/HCPCS: 36415; 80053; 82607; 82728; 83540; 83550; 83615; 83735; 84100; 85025; 85045; 85652; 86140

== ENCOUNTER 2024-08-20 18:49 | Emergency (ER) | payer SELFPAY ==
[2024-08-20 18:49] VITALS: BP 141/81; PULSE 80; RESP 17; TEMP 36.5; O2SAT 100; BMI 33.0
--- NOTE | 2024-08-20 19:49 | EKG12_ITS ---
Test Reason : DIZZY Blood Pressure : */* mmHG Vent. Rate : 85 BPM Atrial Rate : 85 BPM P-R Int : 136 ms QRS Dur : 72 ms QT Int : 368 ms P-R-T Axes : 42 52 33 degrees QTcB Int : 437 ms Normal sinus rhythm Nonspecific ST abnormality Abnormal ECG Confirmed by FAY COLOR[place]O, DEVAN ([id number]), newspaper or periodical editor BEV PURVIS ([id number]) on 08/21/2024 2:14:14 PM Referred By: Reyna Dumont Confirmed By: DEVAN APONTE MD
[2024-08-20 20:04] LABS: Hematocrit 35.8 % (37-47); Hemoglobin 11.1 g/dL (12.0-15.0); Immature Granulocytes Count 0.060 X10^3/uL (0.0-0.0); Mean Corp Hgb Conc 31.0 g/dL (32-36); Mean Corpuscular Volume 78.9 fL (81-99); Mean Platelet Vol. 10.5 fl (6.2-12.0); NRBC Flagged by Analyzer 0 % (0-5); Platelet Count 408 K/mm3 (150-450); RBC Distribution Width CV 15.1 % (11.6-14.6); RBC Distribution Width SD 42.4 fl (35.1-43.9); Red Blood Count 4.54 M/mm3 (4.2-5.4); White Blood Count 12.6 K/mm3 (4.4-11.0)
[2024-08-20 20:05] VITALS: BP 135/94; BP 139/91; BP 148/91; PULSE 88; PULSE 93; PULSE 95
[2024-08-20 20:07] LABS: Mucous, Urine 0 SEEN /hpf (<or=2+)
[2024-08-20 20:16] LABS: Color, Urine Straw (Yellow); Glucose, Dipstick Normal (Normal); Ketone-Dipstick Negative (Negative); Leukocyte Esterase-Dipstick 100 /ul (Negative); Nitrite-Dipstick Negative (Negative); Occult Blood-Urine Negative /ul (Negative); Protein-Dipstick Negative (Negative); Specific Gravity, Urine 1.010 (1.002-1.030); Urine Bilirubin Dipstick Negative (Negative)
--- NOTE | 2024-08-20 20:30 | EDS_ITS ---
HPI History of Present Illness Chief Complaint: Dizziness Informant: patient Narrative Narrative: Patient is a 34-year-old female with history of GERD and iron deficiency anemia presenting with 8 days of dizziness. She states she has intermittent episodes of feeling like she is on the elevator that is going up and then stops but it feels like it is more going to the left and right. She states sometimes she feels like she is swaying or the room is spinning. She has had also episodes of feeling she is going to pass out but has not passed out. She thought maybe she had an ear infection she did have a little bit of pain in her right ear and went to [facility] urgent care. They said her ear was cleaned and recommend she come to the ER for further evaluation. She does note that her head is feeling heavy. She has some nausea for the past 3 days denies any vomiting. Was having relatively severe symptoms right before he came in but they have since resolved on my evaluation. She denies any loss of coordination. Denies any headache, ringing in the ears or hearing changes. Denies any fever or URI symptoms. Denies any GI or symptoms. Never had vertigo before. States she has been drinking plenty of fluids. States she did try Benadryl and Zyrtec with no significant relief of her symptoms. [facility] Medical History Paronychia of right index finger UTI (urinary tract infection) Left eye pain Herpes zoster Flu vaccine need GERD (gastroesophageal reflux disease) Chronic headaches History of back problems Anemia Home Medications ?Medication ?Instructions ?Recorded ?Last Taken ?Type metronidazole 0.75 % topical cream 1 applic topical BI D #45 grams 02/09/24 Unknown Rx cyclobenzaprine 5 mg tablet 5 mg PO QHS PRN pain #20 t abs 04/01/24 Unknown Rx ferrous sulfate 137 mg (45 mg 137 mg PO QDAY 05/15/24 Unknown History iron) tablet,extended release (Slow Fe) omeprazole 20 mg capsule,delayed 20 mg PO DAILY PRN Unknown History release trazodone 100 mg tablet 100 mg PO QHS PRN 05/15/24 U nknown History meclizine 25 mg tablet 25 mg PO 4X/DAY PRN PRN Dizz iness 08/20/24 Unknown Rx #20 tabs Allergy/AdvReac Type Severity Reaction Status Date / Time amoxicillin Allergy Severe Other Verified 08/20/24 18:51 nitrofurantoin (From Allergy Severe Itching Verified 08/20/24 18:51 Macrobid) ceftriaxone (From Rocephin) Allergy Intermediate Other Verified 08/20/24 18:51 Family History Mother Anemia Father Diabetes Hypertension High cholesterol Aunt Breast cancer Sister Epilepsy Uncle Cancer Skin CA Surgical History Previous section Social History household members: spouse and children number of children: 2 current occupational status: employed 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, 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 Smoking Status: Never smoker Electronic Cigarette Use: not used alcohol intake: never substance use type: does not use what type of physical activity do you participate in: none seatbelt use: always do you feel safe at home: Yes ROS ROS ED Constitutional Constitutional ED: Denies chills, fever(s) or sweats Eyes Eyes: Denies blurry vision or change in vision ENT ENT ED: Reports ear pain right; Denies sore throat Cardiovascular Cardiovascular: Denies chest pain Respiratory/Chest Respiratory/Chest: Denies cough or dyspnea Gastrointestinal Gastrointestinal: Reports nausea; Denies abdominal pain or vomiting Genitourinary Genitourinary ED: Denies dysuria or urinary frequency Musculoskeletal Musculoskeletal: Denies arthralgias or myalgias Integumentary Denies rash Neurologic Neurologic: Denies headache(s), paresthesias or weakness Hematologic/Lymphatic Hematologic/Lymphatic: Denies easy bleeding or easy bruising EXAM Physical Exam Const Vital Signs: 08/20/24 18:49 08/20/24 20:05 08/20/24 21:01 Temperature 97.7 F L Temperature Source Temporal Pulse Rate 80 97 Pulse Rate [Lying] 95 Pulse Rate [Sitting (for 1 minute prior to obtaining)] 93 Pulse Rate [Standing (for 1 minute prior to obtaining)] 88 Respiratory Rate 17 16 Blood Pressure 141/81 H 148/91 H Blood Pressure [Lying] 139/91 H Blood Pressure [Sitting (for 1 minute prior to obtaining)] 135/94 H Blood Pressure [Standing (for 1 minute prior to obtaining)] 148/91 H Blood Pressure Mean 101 110 Blood Pressure Mean [Lying] 107 Blood Pressure Mean [Sitting (for 1 minute prior to obtaining)] 107 Blood Pressure Mean [Standing (for 1 minute prior to obtaining)] 110 Pulse Ox 100 98 Oxygen Delivery Method Room Air 08/20/24 21:52 Temperature 98.1 F Temperature Source Pulse Rate 84 Pulse Rate [Lying] Pulse Rate [Sitting (for 1 minute prior to obtaining)] Pulse Rate [Standing (for 1 minute prior to obtaining)] Respiratory Rate 16 Blood Pressure 133/74 H Blood Pressure [Lying] Blood Pressure [Sitting (for 1 minute prior to obtaining)] Blood Pressure [Standing (for 1 minute prior to obtaining)] Blood Pressure Mean 93 Blood Pressure Mean [Lying] Blood Pressure Mean [Sitting (for 1 minute prior to obtaining)] Blood Pressure Mean [Standing (for 1 minute prior to obtaining)] Pulse Ox 99 Oxygen Delivery Method Positive well nourished and well developed General Appearance ED: well developed and NAD; Negative for pallor HEENT Reports TM's clear and moist mucous membranes HEENT Narrative: No tenderness over the sinuses. Hearing intact. Tympanic Membrane ED: Yes TM's clear Eyes PERRL and EOMs intact bilaterally Eyes Narrative: No nystagmus on exam. Negative Seneca-Hallpike maneuver. Patient asymptomatic at this time. Neck supple and no JVD Chest Wall inspection of chest normal and palpation of chest normal Resp normal respiratory effort and clear to auscultation bilaterally Cardio regular rate and regular rhythm GI normal to inspection, nondistended, normoactive bowel sounds and non-tender Extremity normal to inspection Neuro oriented x3, CN's II-XII intact bilaterally and no sensory deficits noted Neuro Narrative: Normal coordination with normal finger-nose. No truncal ataxia. Sensorium / Orientation: alert Motor Exam: strength 5/5 throughout; Negative for general weakness Psych mental status grossly normal Skin no rashes or lesions noted and no wounds General Skin Exam: Negative for pallor MDM MDM MDM Narrative Medical decision making narrative: Patient is evaluated for vague dizziness. Gets more of vertigo however she is asymptomatic when I evaluate her so I do not elicit any nystagmus. She is overall quite well-appearing. She is have a history of anemia. Differential includes peripheral vertigo, low suspicion for central vertigo she has a normal neurologic exam and is young with minimal risk factors for stroke, hypovolemia, infection, JUSTUS, symptomatic anemia and electrolyte abnormalities. Workup shows a mild leukocytosis of 12.6 which actually seems to be chronic for this patient. Mild microcytic anemia which is also chronic and stable. BMP largely normal. Urinalysis shows 10-25 white blood cells with some contamination but no bacteria seen. Her abdomen is soft and nontender. Patient is given as a meclizine in the ER. Her orthostatic vital signs are negative. I do not think she requires IV fluids. Vital signs remain normal in emergency room. Patient reevaluated. She is overall well-appearing. She states she continues to lose. Discussed that the exact cause is not clear at this time we will treat her conservatively as this is peripheral vertigo. Is given a prescription for meclizine. Given return precautions. Discharged home in stable condition. Encouraged to follow-up with primary care doctor as her per symptoms persist she might need further outpatient testing or evaluation. Lab Data Attestation: I reviewed the patient's lab results. Labs: Laboratory Results - last 24 hr 08/20/24 08/20/24 19:35 19:50 WBC 12.6 H RBC 4.54 Hgb 11.1 L Hct 35.8 L MCV 78.9 L MCH 24.4 L MCHC 31.0 L RDW Std Deviation 42.4 RDW Coeff of Giuseppe 15.1 H Plt Count 408 MPV 10.5 Immature Gran % (Auto) 0.500 Neut % (Auto) 65.1 Lymph % (Auto) 25.8 [place] % (Auto) 6.9 Eos % (Auto) 1.0 Baso % (Auto) 0.7 Absolute Neuts (auto) 8.2 H Absolute Lymphs (auto) 3.24 Nucleated RBC % 0 Sodium 139 Potassium 3.9 Chloride 104 Carbon Dioxide 22.3 Anion Gap 13 BUN 7 Creatinine 0.88 Estim Creat Clear Calc 102.36 Est GFR (MDRD) Non-Af 88 BUN/Creatinine Ratio 8.5 L Glucose 100 H Calcium 9.6 Urine Color Straw Urine Clarity Clear Urine pH 6.0 Ur Specific [place] 1.010 Urine Protein Negative Urine Glucose (UA) Normal Urine Ketones Negative Urine Occult Blood Negative Urine Nitrite Negative Urine Bilirubin Negative Urine Urobilinogen Normal Ur Leukocyte Esterase 100 H Urine RBC 0-5 SEEN Urine WBC 10-25 SEEN Ur Squamous Epith Cells 0-5 SEEN Urine Bacteria 0 SEEN Urine Mucus 0 SEEN Rhythm Strip Rhythm Strip: Sinus Rhythm Rate: 85 Ectopy: None EKG Initial EKG: Attestation: I personally reviewed and interpreted this EKG as follows: Interpretation: Sinus Rhythm Comments: Normal sinus rhythm at a rate of 85 bpm Normal axis Normal intervals Normal ST segments Discharge Plan Triage Chief Complaint: Dizziness ED Provider: Reyna Dumont Dx/Rx/DC Orders Clinical Impression: Dizziness of unknown cause Instructions: ED Dizziness, Uncertain Cause, ED Vertigo, Unspecified Prescriptions: New meclizine 25 mg tablet 25 mg PO 4X/DAY PRN PRN (Reason: Dizziness) Qty: 20 0RF No Action metronidazole 0.75 % cream 1 applic topical BID Qty: 45 0RF cyclobenzaprine 5 mg tablet 5 mg PO QHS PRN (Reason: pain) Qty: 20 0RF Slow Fe 137 mg (45 mg iron) tablet extended release 137 mg PO QDAY omeprazole 20 mg capsule,delayed release(DR/EC) 20 mg PO DAILY PRN trazodone 100 mg tablet 100 mg PO QHS PRN Primary Care Provider: Roma Rao Referrals: Roma Rao MD [Primary Care Provider] - Print Language: Icelandic Disposition Disposition: Home, Self Care Discharge Date/Time: 08/20/24 21:54
[2024-08-20 20:39] LABS: Anion Gap 13 (5-15); BUN 7 mg/dL (4-19); BUN/Creat Ratio 8.5 RATIO (10-20); Calcium,Total 9.6 mg/dL (7.6-11.0); Carbon Dioxide 22.3 mmol/L (21.0-32.0); Chloride 104 mmol/L (98-108); Estimated Creatinine Clearance 102.36 ml/min (50-250); Glucose 100 mg/dL (70-99); Potassium 3.9 mmol/L (3.3-5.1)
[2024-08-20 20:55] LABS: Red Blood Cells-Urine 0-5 SEEN /hpf (0-5); Squamous Epithelial Cells - UA 0-5 SEEN /hpf (5-10)
[2024-08-20 21:01] VITALS: BP 148/91; PULSE 97; RESP 16; O2SAT 98
[2024-08-20 21:52] VITALS: BP 133/74; PULSE 84; RESP 16; TEMP 36.7; O2SAT 99
== END 2024-08-20 21:54 | disposition home or self-care (01) ==
PROVIDERS: Emergency Provider Emergency Medicine; PCP Internal Medicine; Referring Provider Emergency Medicine; Visit Provider Emergency Medicine
DX: R42 Dizziness and giddiness (principal); H92.01 Otalgia, right ear; D50.9 Iron deficiency anemia, unspecified; R11.0 Nausea; K21.9 Gastro-esophageal reflux disease without esophagitis; Z79.899 Other long term (current) drug therapy
CPT/HCPCS: 80048; 81001; 85025; 93005; 99285; A4216

== ENCOUNTER 2024-09-15 17:05 | Emergency (ER) | payer OTHER, SELFPAY ==
[2024-09-15 17:05] VITALS: BP 126/85; PULSE 87; RESP 16; TEMP 36.6; O2SAT 100; BMI 33.3
--- NOTE | 2024-09-15 18:42 | CT_ITS ---
PROCEDURE: ABDOMEN/PELVIS W IV CONT ONLY 09/15/2024 REASON FOR EXAM: BILATERAL LOWER QUADRANT PAIN WITH GUARDING AND PE TECHNIQUE: ABDOMEN/PELVIS W IV CONT ONLY Coronal and Sagittal reconstruction series were provided. CONTRAST: Isovue 370 VOLUME: 83 mL One or more dose reduction techniques were used (e.g., Automated exposure control, adjustment of the mA and/or kV according to patient size, use of iterative reconstruction technique. RADIATION DOSE SUMMARY: CTDlvol: 20.49 mGy DLP: 1068.36 mGycm COMPARISON: None. FINDINGS: Lung bases: Clear. Liver: Unremarkable. Gallbladder: Unremarkable. Spleen: Unremarkable. Pancreas: Unremarkable. Adrenals: Unremarkable. Kidneys: Unremarkable. No nephrolithiasis or hydronephrosis. Bladder: Unremarkable Reproductive Organs: Unremarkable. Bowel: No bowel wall thickening. No bowel obstruction. Appendix: Normal. Lymph nodes: No lymphadenopathy platelet Vasculature: No aneurysm. Peritoneum / Retroperitoneum: No free air or free fluid. Bones: No acute bony abnormalities. CT/Abdomen/Pelvis W IV Cont ONLY IMPRESSION: No acute abdominopelvic abnormalities. Reading Location: [facility]
[2024-09-15 19:12] LABS: Mucous, Urine 0 SEEN /hpf (<or=2+)
[2024-09-15 19:13] LABS: Hematocrit 37.6 % (37-47); Hemoglobin 11.7 g/dL (12.0-15.0); Immature Granulocytes Count 0.070 X10^3/uL (0.0-0.0); Mean Corp Hgb Conc 31.1 g/dL (32-36); Mean Corpuscular Volume 79.7 fL (81-99); Mean Platelet Vol. 10.5 fl (6.2-12.0); NRBC Flagged by Analyzer 0 % (0-5); Platelet Count 409 K/mm3 (150-450); RBC Distribution Width CV 15.7 % (11.6-14.6); RBC Distribution Width SD 45.4 fl (35.1-43.9); Red Blood Count 4.72 M/mm3 (4.2-5.4); White Blood Count 15.1 K/mm3 (4.4-11.0)
[2024-09-15 19:13] LABS: Color, Urine Yellow (Yellow); Glucose, Dipstick Normal (Normal); Ketone-Dipstick Negative (Negative); Leukocyte Esterase-Dipstick 100 /ul (Negative); Nitrite-Dipstick Negative (Negative); Occult Blood-Urine 10 /ul (Negative); Protein-Dipstick 15 mg/dl (Negative); Specific Gravity, Urine 1.020 (1.002-1.030); Urine Bilirubin Dipstick Negative (Negative)
[2024-09-15 19:31] LABS: Internal QC Validated? YES +Cl - CLEAR BKGD; Pregnancy, Serum, hCG Quali. NEGATIVE Negative; Record Kit Lot#, Serum Preg. 0000962302
[2024-09-15 19:35] LABS: Red Blood Cells-Urine 0-5 SEEN /hpf (0-5); Squamous Epithelial Cells - UA 0-5 SEEN /hpf (5-10)
--- NOTE | 2024-09-15 19:37 | EX.ED.DYSGE1 ---
HPI History of Present Illness Chief Complaint: Abd Pain Detail of Chief Complaint: Bilateral lower quadrant and side pain Informant: patient Onset/Context/Timing Onset: Days (September 12) Context: Sudden Onset Timing: Continuous and Waxes and wanes Quality: Pain Location: Right and left side predominantly lower quadrant Current Severity: Mild Maximum Severity: Moderate Worsened by: Movement Relieved by: Nothing Associated Symptoms Associated Symptoms: Abnormal menses, nausea Narrative Narrative: 34-year-old G3, P2 Ab1 (spontaneous) female whose last normal menstrual period ended on September 11. She states she had intercourse with her night. She woke up with significant amount of vaginal bleeding on Sunday. She bled for 24 hours. She did pass small clots. She presents with bilateral lower quadrant pain/side pain. It is worse with movement. She does endorse nausea without vomiting or diarrhea. She does have a history of constipation. She denies history of diverticulosis or diverticulitis. She denies history of ectopic . She does have a history of ovarian cyst. She denies any urologic symptoms. She denies back pain. She has a remote history of kidney stone. Patient denies any HEENT, cardiac or respiratory symptoms. Prior similar symptoms: No Recent Illness/Hospitalization: No [facility] Medical History Paronychia of right index finger UTI (urinary tract infection) Left eye pain Herpes zoster Flu vaccine need GERD (gastroesophageal reflux disease) Chronic headaches History of back problems Anemia Home Medications ?Medication ?Instructions ?Recorded ?Last Taken ?Type metronidazole 0.75 % topical cream 1 applic topical BID #45 grams 02/09/24 Unknown Rx cyclobenzaprine 5 mg tablet 5 mg PO QHS PRN pain #20 tabs 04/01/24 Unknown Rx ferrous sulfate 137 mg (45 mg 137 mg PO QDAY 05/15/24 Unknown History iron) tablet,extended release (Slow Fe) omeprazole 20 mg capsule,delayed 20 mg PO DAILY PRN 05/15/24 Unknown History release trazodone 100 mg tablet 100 mg PO QHS PRN 05/15/24 Unknown History meclizine 25 mg tablet 25 mg PO 4X/DAY PRN PRN Dizziness 08/20/24 Unknown Rx #20 tabs sulfamethoxazole 800 1 tab PO BID #14 TABLETS 09/15/24 Unknown Rx mg-trimethoprim 160 mg tablet Allergy/AdvReac Type Severity Reaction Status Date / Time amoxicillin Allergy Severe Other Verified 09/15/24 17:05 nitrofurantoin (From Allergy Severe Itching Verified 09/15/24 17:05 Macrobid) ceftriaxone (From Rocephin) Allergy Intermediate Other Verified 09/15/24 17:05 Family History Mother Anemia Father Diabetes Hypertension High cholesterol Aunt Breast cancer Sister Epilepsy Uncle Cancer Skin CA Surgical History Previous section Social History household members: spouse and children number of children: 2 current occupational status: employed 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, 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 Smoking Status: Never smoker Electronic Cigarette Use: not used alcohol intake: never substance use type: does not use what type of physical activity do you participate in: none seatbelt use: always do you feel safe at home: Yes ROS ROS ED Constitutional Constitutional ED: Denies chills, fever(s), subjective, sweats or weight loss Eyes Eyes: Denies blurry vision, change in vision or diplopia ENT ENT ED: Denies ear pain, rhinorrhea or sore throat Cardiovascular Cardiovascular: Denies chest pain, orthopnea, palpitations, paroxysmal nocturnal dyspnea or racing heartbeat Respiratory/Chest Respiratory/Chest: Denies cough, dyspnea, dyspnea on exertion, orthopnea or paroxysmal nocturnal dyspnea Gastrointestinal Gastrointestinal: Reports abdominal pain, constipation and nausea; Denies diarrhea, melena or vomiting Genitourinary Genitourinary ED: Denies dysuria, hematuria or urinary frequency Musculoskeletal Musculoskeletal: Denies arthralgias or myalgias Integumentary Denies rash Neurologic Neurologic: Denies headache(s), paresthesias or weakness Psychiatric Psychiatric: Denies anxiety or depression Endocrine Endocrinology: Denies cold intolerance or heat intolerance Hematologic/Lymphatic Hematologic/Lymphatic: Reports systems reviewed and no addt'l complaints, except as documented EXAM Physical Exam Const Vital Signs: 09/15/24 17:05 09/15/24 20:20 Temperature 97.8 F Temperature Source Temporal Pulse Rate 87 95 Respiratory Rate 16 18 Blood Pressure 126/85 H 130/94 H Blood Pressure Mean 98 106 Pulse Ox 100 95 Oxygen Delivery Method Room Air Room Air Positive well nourished, well developed and obese Constitutional Narrative: BMI is 33.3. General Appearance ED: well developed; Negative for cyanotic, diaphoretic or pallor Nutritional Appearance: obese HEENT Reports moist mucous membranes HEENT Narrative: Head is atraumatic no cephalic. Ears normal. Nares patent. Eyes PERRL and EOMs intact bilaterally General Eye ED: Negative for pale conjunctiva or scleral icterus Neck no lymphadenopathy, supple and no JVD Chest Wall inspection of chest normal and palpation of chest normal Resp normal respiratory effort and clear to auscultation bilaterally Cardio regular rate, regular rhythm, S1 normal heart sound, S2 normal heart sound and no murmurs GI non-distended and no masses; Negative for normal to inspection, nondistended, normoactive bowel sounds, non-tender or hepatosplenomegaly GI Narrative: Patient has tenderness both right and left quadrant more so left. There is guarding and there is peritoneal findings. Auscultation: hypoactive bowel sounds Palpation: soft Back/Spine no CVA tenderness Extremity normal to inspection General Extremety ED: Negative for edema or tenderness General Extremity: Negative for edema Neuro oriented x3, CN's II-XII intact bilaterally and no sensory deficits noted Sensorium / Orientation: alert Motor Exam: strength 5/5 throughout Psych mental status grossly normal Skin no rashes or lesions noted, no wounds and skin turgor normal General Skin Exam: Negative for elasticity normal, jaundice or pallor MDM MDM MDM Narrative Medical decision making narrative: Differential diagnosis is diverticulitis, abdominal pain of unknown etiology, ruptured appendicitis, ectopic since she had abnormal menses, mesenteric adenitis, inflammatory bowel disorder. Will obtain CT appropriate blood work. Patient was treated with Zofran for nausea as she declined the morphine because she was unable to get a ride. Lab Data Attestation: I reviewed the patient's lab results. Lab results narrative: White count is elevated at 15.1 thousand. She does have a mild anemia with a H&H 11.7 and 37.6 with microscopic indices. UA is remarkable for 5-10 WBCs 1+ bacteria and 0-5 squamous epithelial cells. This with not be the cause. She may have bacteria because of inflammation from the peritonitis. test was negative. Labs: Laboratory Results - last 24 hr 09/15/24 09/15/24 18:57 19:05 WBC 15.1 H RBC 4.72 Hgb 11.7 L Hct 37.6 MCV 79.7 L MCH 24.8 L MCHC 31.1 L RDW Std Deviation 45.4 H RDW Coeff of Giuseppe 15.7 H Plt Count 409 MPV 10.5 Immature Gran % (Auto) 0.500 Neut % (Auto) 69.7 Lymph % (Auto) 22.2 [place] % (Auto) 5.8 Eos % (Auto) 1.1 Baso % (Auto) 0.7 Absolute Neuts (auto) 10.6 H Absolute Lymphs (auto) 3.35 Nucleated RBC % 0 Sodium 139 Potassium 4.0 Chloride 103 Carbon Dioxide 20.6 L Anion Gap 15 BUN 15 Creatinine 0.76 Estim Creat Clear Calc 119.02 Est GFR (MDRD) Non-Af 105 BUN/Creatinine Ratio 19.4 Glucose 86 Calcium 9.8 Serum , Qual NEGATIVE Urine Color Yellow Urine Clarity Clear Urine pH 6.0 Ur Specific [place] 1.020 Urine Protein 15 H Urine Glucose (UA) Normal Urine Ketones Negative Urine Occult Blood 10 H Urine Nitrite Negative Urine Bilirubin Negative Urine Urobilinogen Normal Ur Leukocyte Esterase 100 H Urine RBC 0-5 SEEN Urine WBC 5-10 SEEN Ur Squamous Epith Cells 0-5 SEEN Urine Bacteria 1+ Urine Mucus 0 SEEN Radiography Diagnostic Testing: Clinical Impression(s) from Imaging Studies Abdomen/Pelvis CT 09/15/24 18:42 IMPRESSION: No acute abdominopelvic abnormalities. Reading Location: [facility] Treatment and Re-Evaluation :: Patient was informed that her CAT scan revealed no abnormal intra-abdominal process. Suspect she has a complicated UTI. She received her first dose of Bactrim in the Emergency Department and she has allergy to nitrofurantoin, cephalosporin and amoxicillin. She was given a prescription for Bactrim DS. Discharge Plan Triage Chief Complaint: Abd Pain ED Provider: German Jones Dx/Rx/DC Orders Clinical Impression: Complicated UTI (urinary tract infection), Leukocytosis, Abdominal pain, acute, bilateral lower quadrant, Abnormal vaginal bleeding, Elevated blood-pressure reading without diagnosis of hypertension Instructions: ED Cystitis Female Adult Prescriptions: New sulfamethoxazole-trimethoprim 800-160 mg tablet 1 tab PO BID Qty: 14 0RF No Action metronidazole 0.75 % cream 1 applic topical BID Qty: 45 0RF cyclobenzaprine 5 mg tablet 5 mg PO QHS PRN (Reason: pain) Qty: 20 0RF Slow Fe 137 mg (45 mg iron) tablet extended release 137 mg PO QDAY omeprazole 20 mg capsule,delayed release(DR/EC) 20 mg PO DAILY PRN trazodone 100 mg tablet 100 mg PO QHS PRN meclizine 25 mg tablet 25 mg PO 4X/DAY PRN PRN (Reason: Dizziness) Qty: 20 0RF Primary Care Provider: Roma Rao Referrals: Roma Rao MD [Primary Care Provider] - 3-5 Days if not improving Print Language: Icelandic Disposition Disposition: Home, Self Care
[2024-09-15 19:42] LABS: Anion Gap 15 (5-15); BUN 15 mg/dL (4-19); BUN/Creat Ratio 19.4 RATIO (10-20); Calcium,Total 9.8 mg/dL (7.6-11.0); Carbon Dioxide 20.6 mmol/L (21.0-32.0); Chloride 103 mmol/L (98-108); Estimated Creatinine Clearance 119.02 ml/min (50-250); Glucose 86 mg/dL (70-99); Potassium 4.0 mmol/L (3.3-5.1)
[2024-09-15 20:20] VITALS: BP 130/94; PULSE 95; RESP 18; O2SAT 95
[2024-09-15] MEDS: Smz/Tmp Ds Tablet 1 TABLET PO (21:08)
[2024-09-15 21:10] VITALS: BP 130/94; PULSE 95; RESP 18; TEMP 36.6; O2SAT 95
== END 2024-09-15 21:11 | disposition home or self-care (01) ==
PROVIDERS: Emergency Provider Emergency Medicine; PCP Internal Medicine; Referring Provider Emergency Medicine; Visit Provider Emergency Medicine
DX: N39.0 Urinary tract infection, site not specified (principal); K65.9 Peritonitis, unspecified; R10.31 Right lower quadrant pain; K21.9 Gastro-esophageal reflux disease without esophagitis; E66.9 Obesity, unspecified; D64.9 Anemia, unspecified; D72.829 Elevated white blood cell count, unspecified; R10.32 Left lower quadrant pain; N93.9 Abnormal uterine and vaginal bleeding, unspecified; R03.0 Elevated blood-pressure reading, without diagnosis of hypertension
CPT/HCPCS: 74177; 80048; 81001; 84703; 85025; 87086; 87088; 96374; 99282; Q9967; A4216; J2405

== ENCOUNTER → 2024-09-19 | Outpatient (CLI) | payer SELFPAY ==
[2024-09-19 13:19] LABS: Mucous, Urine 0 SEEN /hpf (<or=2+)
[2024-09-19 13:26] LABS: Color, Urine Yellow (Yellow); Glucose, Dipstick Normal (Normal); Ketone-Dipstick 50 mg/dl (Negative); Leukocyte Esterase-Dipstick 25 /ul (Negative); Nitrite-Dipstick Negative (Negative); Occult Blood-Urine 10 /ul (Negative); Protein-Dipstick 15 mg/dl (Negative); Specific Gravity, Urine 1.020 (1.002-1.030); Urine Bilirubin Dipstick Negative (Negative)
[2024-09-19 14:25] LABS: Squamous Epithelial Cells - UA 10-25 SEEN /hpf (5-10)
[2024-09-19 14:29] LABS: Calcium Oxalate Crystals Ur 2+ /hpf (<or=2+)
[2024-09-19 14:30] LABS: Red Blood Cells-Urine 0-5 SEEN /hpf (0-5)
== END | disposition home or self-care (01) ==
LOC: LABSPEC 13:15
PROVIDERS: PCP Internal Medicine; Referring Provider Physician Assistant; Visit Provider Physician Assistant
DX: N39.0 Urinary tract infection, site not specified (principal)
CPT/HCPCS: 81001; 87086; 87088